=== PATIENT | male | born 1950 | race Caucasian/White ===

== ENCOUNTER 2020-06-30 16:03 | Inpatient (IN) | payer MEDICARE ==
[2020-06-30] MEDS ORDERED: Enoxaparin Sodium 100 MG/ML SYRINGE ONE (16:49)
[2020-06-30] MEDS ORDERED: Lorazepam 2 MG/ML VIAL ONE (16:51)
[2020-06-30] MEDS ORDERED: Aspirin 325 MG TAB ONE (16:51)
[2020-06-30 17:16] LABS: #Monocytes 0.7 10x3/uL (0.0-1.1); #Neutrophils 3.4 10x3/uL (1.5-8.4); %Basophils 0.6 % (0.0-2.0); %Eosinophils 0.6 % (0.0-6.0); %Lymphocytes 19.5 % (18.0-47.0); %Monocytes 12.9 % (0.0-10.0); Hemoglobin 13.3 g/dL (13.5-17.5); Mean Corpuscular HGB CONC 32.8 g/dL (32.0-36.0); Mean Corpuscular Hemoglobin 29.9 pg (27.0-33.0); Mean Corpuscular Volume 91.2 fl (81.2-95.1); Mean Platelet Volume 10.3 fl (7.4-10.4); Platelet Count 117 10x3/uL (150-450); RBC Distribution Width 14.4 % (11.5-14.5); Red Blood Cell (RBC) Count 4.45 10x6/uL (4.32-5.72); White Blood Cell (WBC) Count 5.2 10x3/uL (3.5-10.5)
[2020-06-30 17:34] LABS: ALT (SGPT) 130 U/L (8-55); AST (SGOT) 91 U/L (5-34); Alkaline Phosphatase 69 U/L (40-110); Anion Gap 14 mmol/L (10-20); BUN (Urea Nitrogen) 14 mg/dL (8.4-25.7); Bilirubin, Total 0.9 mg/dL (0.2-1.2); Calc. Creatinine Clearance 0 mL/min (70-130); Calcium 8.8 mg/dL (7.8-10.44); Carbon Dioxide 26 mmol/L (23-31); Chloride 106 mmol/L (98-107); Globulin 2.2 g/dL (2.4-3.5); Glucose 117 mg/dL (80-115); Magnesium 1.7 mg/dL (1.6-2.6); Potassium 4.2 mmol/L (3.5-5.1); Protein, Total 6.2 g/dL (5.8-8.1); Sodium 142 mmol/L (136-145)
[2020-06-30] MEDS ORDERED: Ondansetron ODT 4 MG TAB PO PRN (17:40)
[2020-06-30] MEDS ORDERED: Ondansetron PF 4 MG/2 ML Vial IVP PRN (17:40)
[2020-06-30] MEDS ORDERED: Acetaminophen 325 MG TAB PO PRN (17:40)
[2020-06-30] MEDS ORDERED: Diltiazem 125 MG in Sodium Chloride 0.9% 100 ML IVPB SCH ×2 (17:45→19:45)
[2020-06-30] MEDS ORDERED: Diazepam 10 MG/2 ML SYRINGE ONE (18:25)
[2020-06-30] MEDS ORDERED: Diltiazem 125 MG/25 ML ONE (18:26)
[2020-06-30] MEDS ORDERED: Metoprolol Tartrate 25 MG TAB PO SCH (21:00)
[2020-06-30] MEDS: Famotidine 20 MG TAB PO SCH (22:44)
[2020-06-30 22:50] VITALS: BMI 30.7
[2020-06-30 23:17] LABS: Troponin I 0.059 ng/mL (< 0.028)
[2020-07-01 05:31] LABS: #Eosinphils 0.1 10x3/uL (0.0-0.5); #Monocytes 0.6 10x3/uL (0.0-1.1); #Neutrophils 1.9 10x3/uL (1.5-8.4); %Basophils 0.7 % (0.0-2.0); %Eosinophils 1.9 % (0.0-6.0); %Lymphocytes 37.3 % (18.0-47.0); %Monocytes 13.5 % (0.0-10.0); %Neutrophils 45.9 % (40.0-75.0); Hemoglobin 12.2 g/dL (13.5-17.5); Mean Corpuscular HGB CONC 32.7 g/dL (32.0-36.0); Mean Corpuscular Hemoglobin 29.6 pg (27.0-33.0); Mean Corpuscular Volume 90.5 fl (81.2-95.1); Mean Platelet Volume 11.2 fl (7.4-10.4); Platelet Count 106 10x3/uL (150-450); RBC Distribution Width 14.5 % (11.5-14.5); Red Blood Cell (RBC) Count 4.12 10x6/uL (4.32-5.72); White Blood Cell (WBC) Count 4.2 10x3/uL (3.5-10.5)
[2020-07-01 05:32] LABS: Anion Gap 13 mmol/L (10-20); BUN (Urea Nitrogen) 12 mg/dL (8.4-25.7); Calc. Creatinine Clearance 115 mL/min (70-130); Calcium 8.2 mg/dL (7.8-10.44); Carbon Dioxide 28 mmol/L (23-31); Chloride 106 mmol/L (98-107); Glucose 92 mg/dL (80-115); Potassium 3.6 mmol/L (3.5-5.1); Sodium 143 mmol/L (136-145)
[2020-07-01] MEDS: Apixaban 5 MG TAB PO SCH ×2 (08:38→20:33)
[2020-07-01] MEDS: Famotidine 20 MG TAB PO SCH ×2 (08:38→20:33)
[2020-07-01] MEDS: Metoprolol Tartrate 50 MG TAB PO SCH ×2 (08:38→20:33)
[2020-07-01] MEDS: Lorazepam 0.5 MG TAB PO PRN ×2 (16:11→20:33)
[2020-07-01] MEDS ORDERED: Spironolactone 25 MG TAB PO SCH (16:48)
[2020-07-01] MEDS ORDERED: Furosemide 40 MG/4 ML VIAL SLOW IVP SCH (17:00)
[2020-07-01] MEDS ORDERED: Losartan 25 MG TAB PO SCH (17:00)
[2020-07-01] MEDS: chlordiazePOXIDE HCl 25 MG CAP PO SCH (20:34)
[2020-07-02] MEDS: Lorazepam 0.5 MG TAB PO PRN ×5 (04:19→21:50)
[2020-07-02 06:07] LABS: ALT (SGPT) 96 U/L (8-55); AST (SGOT) 56 U/L (5-34); Albumin 3.7 g/dL (3.4-4.8); Alkaline Phosphatase 59 U/L (40-110); Anion Gap 12 mmol/L (10-20); BUN (Urea Nitrogen) 15 mg/dL (8.4-25.7); Bilirubin, Total 0.8 mg/dL (0.2-1.2); Calc. Creatinine Clearance 88 mL/min (70-130); Calcium 8.4 mg/dL (7.8-10.44); Carbon Dioxide 31 mmol/L (23-31); Chloride 105 mmol/L (98-107); Glucose 118 mg/dL (80-115); Potassium 3.9 mmol/L (3.5-5.1); Protein, Total 5.7 g/dL (5.8-8.1); Sodium 144 mmol/L (136-145)
[2020-07-02] MEDS: Furosemide 40 MG/4 ML VIAL SLOW IVP SCH ×2 (06:53→14:53)
[2020-07-02] MEDS: chlordiazePOXIDE HCl 25 MG CAP PO SCH ×3 (09:05→21:50)
[2020-07-02] MEDS: Apixaban 5 MG TAB PO SCH ×2 (09:05→21:51)
[2020-07-02] MEDS: Losartan 25 MG TAB PO SCH (09:05)
[2020-07-02] MEDS: Famotidine 20 MG TAB PO SCH ×2 (09:05→21:50)
[2020-07-02] MEDS: Metoprolol Tartrate 50 MG TAB PO SCH ×2 (09:06→21:51)
[2020-07-02] MEDS: Folic Acid 1 MG TAB PO SCH (09:06)
[2020-07-02] MEDS: Thiamine 100 MG TAB PO SCH (09:06)
[2020-07-02 17:16] LABS: SARS-CoV-2 PCR by NAA Not Detected (NotDetected)
[2020-07-02] MEDS: Digoxin 0.5 MG/2 ML AMP SLOW IVP SCH ×3 (17:53→21:51)
[2020-07-03] MEDS: Lorazepam 0.5 MG TAB PO PRN ×2 (01:47→06:13)
[2020-07-03] MEDS ORDERED: Metoprolol Tartrate 5 MG/5 ML VIAL IVP SCH (06:15)
[2020-07-03 06:59] LABS: Anion Gap 18 mmol/L (10-20); BUN (Urea Nitrogen) 17 mg/dL (8.4-25.7); Calc. Creatinine Clearance 81 mL/min (70-130); Calcium 9.2 mg/dL (7.8-10.44); Carbon Dioxide 28 mmol/L (23-31); Chloride 102 mmol/L (98-107); Glucose 97 mg/dL (80-115); Potassium 4.2 mmol/L (3.5-5.1); Sodium 144 mmol/L (136-145)
[2020-07-03 07:48] VITALS: BP 125/77; TEMP 98.7
[2020-07-03] MEDS ORDERED: Furosemide 40 MG TAB PO SCH (09:00)
[2020-07-03] MEDS ORDERED: Digoxin 0.25 MG TAB PO SCH (09:00)
[2020-07-03 09:02] LABS: PTT 24.8 sec (22.0-33.0); Prothrombin Time 11.5 sec (9.5-12.1)
[2020-07-03] MEDS: Apixaban 5 MG TAB PO SCH (09:09)
[2020-07-03] MEDS: Losartan 25 MG TAB PO SCH (09:10)
[2020-07-03] MEDS: Thiamine 100 MG TAB PO SCH (09:10)
[2020-07-03] MEDS: Folic Acid 1 MG TAB PO SCH (09:10)
[2020-07-03] MEDS: Famotidine 20 MG TAB PO SCH (09:10)
[2020-07-03] MEDS: Metoprolol Tartrate 50 MG TAB PO SCH (09:10)
[2020-07-03] MEDS: chlordiazePOXIDE HCl 25 MG CAP PO SCH (09:11)
== END 2020-07-03 12:40 | disposition home or self-care (01) | DRG 308 ==
LOC: CSHERS 16:03 → CSHTELE 22:22
PROVIDERS: ADMIT Student in an Organized Health Care Education/Training Program; ATTEND Family Medicine
DX: I48.3 Typical atrial flutter (principal); I50.41 Acute combined systolic (congestive) and diastolic (congestive) heart failure; F10.239 Alcohol dependence with withdrawal, unspecified; I48.92 Unspecified atrial flutter; Z20.822 Contact with and (suspected) exposure to COVID-19; J45.20 Mild intermittent asthma, uncomplicated; Z85.820 Personal history of malignant melanoma of skin; Z85.6 Personal history of leukemia; Z90.49 Acquired absence of other specified parts of digestive tract; R74.01 Elevation of levels of liver transaminase levels
CPT/HCPCS: 36415; 71045; 80048; 80053; 82553; 83735; 83880; 84443; 84484; 85025; 85610; 85730; 87635; 93005; 93306; 94760; 96372; 96374; 96375; 96376; J1160; J1650; J1940; J2060; J3360; U0003; U0005

== ENCOUNTER → 2020-07-07 | Day surgery (SDC) | payer MEDICARE ==
[~2020-07-07] MED LIST: Acetaminophen 325 MG TAB ONE; Fentanyl 100 MCG/2 ML VIAL ONE; Heparin 10,000 UNITS/ 10 ML VIAL ONE; Lidocaine 1% (PF) 30 ML VIAL ONE; Ondansetron PF 4 MG/2 ML Vial ONE; PROPOFOL 200 MG/20 ML VIAL ONE; Phenylephrine 10 MG/ML VIAL ONE; Promethazine HCl 25 MG/ML VIAL ONE; Propofol 1,000 MG/100 ML VIAL IV ONE
[2020-07-07 09:59] VITALS: BMI 29.9
[2020-07-07 10:05] VITALS: BP 115/71; TEMP 97.8
== END ==
LOC: CSHSDC 08:32
PROVIDERS: ATTEND Internal Medicine Cardiovascular Disease
DX: I48.3 Typical atrial flutter (principal); I48.19 Other persistent atrial fibrillation
CPT/HCPCS: 92960; 93312; 93613; 93621; 93653; C1731; C1760; C1894; C2630; J1644; J2001; J2370; J2405; J2550; J2704; J3010